=== PATIENT | female | born 1950 | race Caucasian/White ===

== ENCOUNTER 2017-03-08 09:29 | Emergency (ER) | payer OTHER ==
[~2017-03-08] VITALS: Ht 162.6 cm; Wt 81.6 kg
[2017-03-08] MEDS ORDERED: PAROXETINE HCL20 MG PO (10:03)
[2017-03-08] MEDS ORDERED: CELECOXIB200 MG PO (10:04)
[2017-03-08] MEDS ORDERED: PRAVASTATIN SOD40 MG PO (10:04)
[2017-03-08] MEDS ORDERED: ATENOLOL25 MG PO (10:04)
[2017-03-08] MEDS ORDERED: LEVOTHYROXINE125 MCG PO (10:05)
[2017-03-08] MEDS ORDERED: METFORMIN HCL500 M1 PO (10:05)
[2017-03-08] MEDS ORDERED: GAS-X125 M1 PO (10:05)
[2017-03-08] MEDS ORDERED: NORCO 5-325 TA1 EACH PO (12:34)
[2017-03-08] MEDS ORDERED: FLAGYL500 MG PO (12:34)
[2017-03-08] MEDS ORDERED: CIPRO500 MG PO (12:34)
== END 2017-03-08 12:55 | disposition home or self-care (01) ==
LOC: ED 09:29
DX: K57.30 Diverticulosis of large intestine without perforation or abscess without bleeding (principal); I10 Essential (primary) hypertension; Z90.49 Acquired absence of other specified parts of digestive tract; Z90.710 Acquired absence of both cervix and uterus; Z88.5 Allergy status to narcotic agent; Z79.899 Other long term (current) drug therapy
CPT/HCPCS: 74177; 80053; 81001; 85025; 96361; 96374; 96375; 99284; J1170; J2405; J7030; Q9967

== ENCOUNTER 2019-09-11 06:18 | Emergency (ER) | payer MEDICARE, OTHER ==
[~2019-09-11] VITALS: Ht 162.6 cm; Wt 83.0 kg
[~2019-09-11 06:18] MED LIST: ATENOLOL25 MG PO; CELECOXIB200 MG PO; CIPRO500 MG PO; FLAGYL500 MG PO; GAS-X125 M1 PO; LEVOTHYROXINE125 MCG PO; METFORMIN HCL500 M1 PO; NORCO 5-325 TA1 EACH PO; PAROXETINE HCL20 MG PO; PRAVASTATIN SOD40 MG PO
[2019-09-11] MEDS ORDERED: AMOX TR-K CLV1 EAC1 PO (06:41)
[2019-09-11] MEDS ORDERED: ONDANSETRON HCL8 MG PO (06:41)
[2019-09-11] MEDS ORDERED: ATENOLOL50 MG PO (06:42)
[2019-09-11] MEDS ORDERED: ESOMEPRAZOLE MA40 MG PO (06:43)
[2019-09-11] MEDS ORDERED: DILAUDID2 MG PO (10:24)
[2019-09-11] MEDS ORDERED: ONDANSETRON ODT8 MG PO (10:24)
[2019-09-11] MEDS ORDERED: CIPRO500 MG PO (10:24)
[2019-09-11] MEDS ORDERED: FLAGYL500 MG PO (10:24)
== END 2019-09-11 10:58 | disposition home or self-care (01) ==
LOC: ED 06:18
DX: K57.32 Diverticulitis of large intestine without perforation or abscess without bleeding (principal); I10 Essential (primary) hypertension; Z88.5 Allergy status to narcotic agent; Z79.899 Other long term (current) drug therapy
CPT/HCPCS: 74177; 80053; 81001; 83690; 85025; 96361; 96365; 96368; 96375; 99284-25; J0744; J1170; J2405; J7030; Q9967

== ENCOUNTER 2020-01-11 11:08 | Emergency (ER) | payer MEDICARE, OTHER ==
[~2020-01-11] VITALS: Ht 162.6 cm; Wt 83.0 kg
[~2020-01-11 11:08] MED LIST changes: +AMOX TR-K CLV1 EAC1 PO; +ATENOLOL50 MG PO; +DILAUDID2 MG PO; +ESOMEPRAZOLE MA40 MG PO; +ONDANSETRON HCL8 MG PO; +ONDANSETRON ODT8 MG PO
[2020-01-11] MEDS ORDERED: RALOXIFENE HCL60 MG PO (11:15)
[2020-01-11] MEDS ORDERED: MECLIZINE HCL25 MG PO (11:16)
[2020-01-11] MEDS ORDERED: PREDNISONE10 MG PO (13:43)
[2020-01-11] MEDS ORDERED: ATIVAN1 MG PO (13:43)
[2020-01-11] MEDS ORDERED: TRANSDERM-SCOP1 EACH TD (13:43)
[2020-01-11] MEDS ORDERED: ONDANSETRON ODT8 MG PO (13:43)
== END 2020-01-11 14:13 | disposition home or self-care (01) ==
LOC: ED 11:08
DX: R42 Dizziness and giddiness (principal); I10 Essential (primary) hypertension; Z88.5 Allergy status to narcotic agent; Z79.899 Other long term (current) drug therapy
CPT/HCPCS: 36415; 80053; 85025; 96361; 96374; 96375; 99284-25; J2060; J2405; J7030; J7512

== ENCOUNTER 2020-10-22 11:57 | Observation (INO) | payer MEDICARE, OTHER ==
[~2020-10-22] VITALS: Ht 162.6 cm; Wt 81.0 kg
[~2020-10-22 11:57] MED LIST changes: -ATENOLOL25 MG PO; +ATIVAN1 MG PO; +MECLIZINE HCL25 MG PO; +PREDNISONE10 MG PO; +RALOXIFENE HCL60 MG PO; +TENORMIN50 MG PO; +TRANSDERM-SCOP1 EACH TD
[2020-10-22] MEDS ORDERED: TRIAMTERENE-HC1 EAC1 PO (17:44)
--- NOTE | 2020-10-22 17:58 | NUR ---
PATIENT ARRIVES TO CCU AROUND 1700 FROM ER. PT ABLE TO STAND AND MOVE OVER TO BED BUT IS SLIGHTLY SHORT OF BREATH AND PAINFUL WITH EVEN THIS LITTLE ACTIVITY. PT ADMITTED WITH BILATERAL PEs. ASSESSMENT AND VITALS TAKEN. PT IS ON ROOM AIR. PT STATES PAIN IS 5/10 IN HER LEFT CHEST AND RADIATES TO HER BACK. PT DESCRIBES THIS SEVERE IN NATURE, BUT IMPROVED MUCH SINCE AT HOME. PT REPORTS SHE HAS BEEN DEALING WITH THIS PAIN FOR AROUND 3 DAYS. PT DENIES ANY P AST MEDICAL HISTORY OF CLOTTING DISORDERS, BUT DOES NOTE THAT HER DAUGHTER HAS CLOTTING ISSUES. PT GIVEN LOVENOX IN ER. IVF STARTED AT 75 ML/HR. PT TALKS WITH HER ON THE PHONE. CALL LIGHT IN REACH.
[2020-10-22] MEDS ORDERED: VITAMIN D325 MCG PO (18:10)
--- NOTE | 2020-10-22 18:11 | NUR ---
PATIENT GIVEN OXYCODONE AND TYLENOL FOR 9/10 PAIN IN LEFT SIDE CHEST. PT HELPED TO SIT UPRIGHT MORE. CONTINUE TO MONITOR.
--- NOTE | 2020-10-22 19:42 | NUR ---
REPORT RECEIVED FROM ADRIANA JOY. PT RESTING IN BED WITH EYES CLOSED, RESP EVEN AND UNLABORED HR 80'S.
--- NOTE | 2020-10-22 21:10 | NUR ---
PT AWAKENS AND CALLS TO USE BR. UP TO BR TO VOID, BACK TO BED. PT PAINFUL ON LEFT SIDE WITH MOVEMENT, STATES NO NEW PAIN AT THIS TIME AND PAIN SETTLES DOWN ONCE SHE GETS INTO BED BUT SHE DOES REQUEST PAIN MEDICATION WHEN IT IS TIME. ASSESSMENT DONE. PT ON ROOM AIR 95%, LUNGS CLEAR, DEEP BREATHING ENCOURAGED. IS BROUGHT INTO ROOM AND EDUCATION DONE. PT ALSO GIVEN FIRST DOSE OF ELIQUIS, MED EDUCATION DONE INCLUDING REASON FOR TAKING IT. NO QUESTIONS AT THIS TIME. PT WANTS TO TRY TO GET BACK TO SLEEP.
--- NOTE | 2020-10-22 21:57 | EKG ---
[facility] [address] [facility] [facility] [place], [place] [address] Signed Normal sinus rhythm Normal ECG No previous ECGs available Confirmed by NAI EPSTEIN MD ([id number]) on 10/22/2020 9:56:54 PM Electronically Signed By: NAI EPSTEIN MD 10/22/20 2157 PATIENT NAME: BRII BENJAMIN DEMETRIUS Electrocardiogram DATE OF : 52 PHYSICIAN: NAI EPSTEIN MD REPORT #: [id number] REPORT IS CONFIDENTIAL AND NOT TO BE RELEASED WITHOUT AUTHORIZATION
--- NOTE | 2020-10-22 23:00 | NUR ---
PT AWAKE IN BED, REQUESTS PAIN MEDICINE, OXYCODONE GIVEN 10MG. ASSESSMENT DONE.
--- NOTE | 2020-10-23 01:00 | NUR ---
PT RESTING WITH EYES CLOSED, RESP EVEN AND UNLABORED.
--- NOTE | 2020-10-23 04:30 | NUR ---
O2 SATS DIPPING DOWN TO 89 90% WHILE PT SLEEPING. O2/2L APPLIED AND SATS UP TO 98%.
--- NOTE | 2020-10-23 06:10 | NUR ---
PT CALLS FOR PAIN MEDICINE 5/10 IN LEFT CHEST AND BACK, WORSE WITH ACTIVITY. 10MG OXYCODONE GIVEN, PT UP TO BR TO VOID THEN BACK TO BED. 92-93% ON ROOM AIR, WILL REAPPLY OXYGEN AT 2L.
--- NOTE | 2020-10-23 08:00 | NUR ---
Spoke withpt and she states she lives out of town in a 1 story home with her spouse and her daughter. She states she is usually very acti ve and does not use any DME. They do not have any financial issues. States she will have assist from her spouse and her daughter. Plans on dc to home when cleared by hospitalist.
--- NOTE | 2020-10-23 08:15 | NUR ---
Spoke with Dario who I am very familar with. He cont. to live at home with his mother, his sister is a state paid cg. He is bedbound. He is seen by [facility] for catheter care. He denies needs. Shows me and itchy area on his L hip, which is dried skin and possible old wound site. Denies needs to go home and wants to go home when cleared for dc.
--- NOTE | 2020-10-23 08:17 | NUR ---
DR. EPSTEIN IN TO SEE PATIENT. PATIENT RESTING. PT RATES PAIN 3/10 AT THIS TIME. PT'S BREAKFAST BROUGHT INTO HER. PT STATES SHE IS SLIGHTLY NAUESOUS AT THIS TIME. OXYGEN TURNED DOWN TO 1 L AND SP02 WAS 98% BEFORE TURNED DOWN. ASSESSMENT COMPLETE.
--- NOTE | 2020-10-23 10:10 | NUR ---
PATIENT RESTING. OXYGEN TURNED OFF AND SP02 WAS 98% ON 1 L. PT STATES, "i'M JUST TRYING TO WAKE UP A LITTLE MORE AND LET THOSE PAIN PILLS WEAR OFF." PATIENT ABLE TO EAT HER BREAKFAST, AND HER NAUSEA EVENTUALLY SUBSIDED. LAST BP 143/74. CONTINUE TO MONITOR.
--- NOTE | 2020-10-23 11:36 | NUR ---
PATIENT UP TO CHAIR AND VISITING WITH HER DAUGHTER. PATIENT WILL TRANSFER TO MEDICAL FLOOR WHEN ROOM AVAILABLE. PT HAS REMAINED OFF OXYGEN NOW FOR A OCUPLE HOURS, AND SP02 IS 95% CURRENTLY. DR. EPSTEIN CALLED FOR ADDITIONAL ACID REFLUX MEDICATION. PT STATES SHE HAS PRESCRIPTION STRENGTH NEXIUM AT HOME AND HAS HORRIBLE ACID RELUX ISSUES. NEW ORDER RECEIVED FOR PROTONIX DAILY AND FIRST DOSE GIVEN. NOON ASSESSMENT COMPLETE. CONTINUE TO MONITOR.
--- NOTE | 2020-10-23 14:11 | NUR ---
ARRIVES FROM CCU. ASSESSMENT COMPLETED. STATES SHE IS FEELING NAUSEATED. PRN MEDICATION GIVEN. DENIES OTHER NEEDS AT THIS TIME.
--- NOTE | 2020-10-23 14:52 | NUR ---
PATIENT RESTING IN BED, EYES CLOSED. WOKE TO VOICE. VITALS AND I&OS CHARTED. FRESH WATER GIVEN
--- NOTE | 2020-10-23 15:41 | NUR ---
Sitting up in bed. Watching TV. States her nausea and reflux are improved. Denies other needs at this time.
--- NOTE | 2020-10-23 17:25 | NUR ---
RX for 1st month Robert faxed to [facility]. It is ready for pickup and the copay is [phone]. Patient is aware of the cost and is agreeable to picking it upon discharge
--- NOTE | 2020-10-23 18:16 | NUR ---
Sitting up in bed, watching TV. Heartrate remains in 60's per telemetry. Respirations remain even and unlabored. Denies needs. Call light in reach. Bed rails up X2.
--- NOTE | 2020-10-23 18:44 | NUR ---
ADMITTED TO MED-SURG FROM CCU THIS AFTERNOON. REMAINS ON ROOM AIR. IV FLUIDS INFUSING. DENIES PAIN THIS AFTERNOON. WAS NAUSEOUS, IMPROVED WITH PRN ZOFRAN.
--- NOTE | 2020-10-23 19:10 | NUR ---
RECEIVED REPORT FROM TELMA JOY. pt RESTING IN BED. UP TO VOID AND DO PM CARES. STEADY ON FEET. VISITOR AT BEDSIDE. WHITEBOARD UPDATED. CALL LIGHT WITHIN REACH.
--- NOTE | 2020-10-23 20:52 | NUR ---
CALL LIGHT ANSWERED. pt COMPLAINS OF 1/10 CAZARES PAIN. PRN TYLENOL ADMINISTERED. pt STATES "I HAVEN'T HAD COFFEE FOR THREE DAYS OR TAKEN ANYTHING TODAY". COFFEE OFFERED, pt STATES "MY STOMACH CAN'T HANDLE THAT RIGHT NOW". VSS. pt SNACKING ON APPLESAUCE, CRACKERS. SCHEDULED MEDICATION ADMINISTERED, EDUCATION PROVIDED. ICE WATER REFRESHED. IVF INFUSING WNL. NO ADDITIONAL REQUESTS AT THIS TIME.
--- NOTE | 2020-10-23 21:14 | NUR ---
IN TO DO ASSESSMENT. pt RESTING IN BED, AWAKE. REPORTED THAT SHE HAD JUST GOTTEN PAIN MEDS FOR HEADACHE. ASSESSMENT DONE. DENIED CHEST TIGHTNESS OR SOB AT THIS TIME. pt REPORTED THAT HER BREATHING WAS BETTER AND SHE FELT SHE COULD BREATH DEEPER THAN BEFORE. LUNG SOUNDS CLEAR. NO REQUESTS AT THIS TIME. O2 SAT 95%, HR 61 ON TELE 9. CALL LIGHT WITHIN REACH.
--- NOTE | 2020-10-23 23:48 | NUR ---
ROUNDED ON pt. RESTING IN BED WITH EYES CLOSED, HR 50'S, O2 SAT 94%. CALL LIGHT WITHIN REACH.
--- NOTE | 2020-10-24 02:03 | NUR ---
ROUNDED ON pt. RESTING IN BED WITH EYES CLOSED, RESPIRATIONS REGULAR AND UNLABORED. HR 50'S O2 SAT 97% ON ROOM AIR. CALL LIGHT WITHIN REACH.
--- NOTE | 2020-10-24 03:00 | NUR ---
NOTED DESAT TO HIGH 80'S. pt RESTING IN BED WITH EYES CLOSED, RESPIRATIONS REGULAR AND UNLABORED. SATS RETURNED TO MID 90'S QUICKLY WITHOUT INTERVENTION.
--- NOTE | 2020-10-24 04:13 | NUR ---
CALL LIGHT ON. IV PUMP BEEPING. NEW BAG HUNG. pt UP TO VOID, SBA. pt BACK TO BED. ASSESSMENT DONE. NO CHANGES IN ASSESSMENT. pt DENIES PAIN EVEN WITH COUGH. pt REPORTED "I FEEL A LOT BETTER" NO FURTHER REQUESTS AT THIS TIME. CALL LIGHT WITHIN REACH.
--- NOTE | 2020-10-24 06:34 | NUR ---
IN TO DO VITALS AND MEDS. pt AWAKE IN BED. DENIES PAIN. REPORTED SLEEPING WELL DURING THE NIGHT. MEDICATION GIVEN, VITALS DONE. pt SBA UP TO VOID AND BACK TO BED. FRESH WATER PROVIDED. CALL LIGHT WITHIN REACH.
--- NOTE | 2020-10-24 07:00 | NUR ---
Report from Yovani Olivarez RN.
--- NOTE | 2020-10-24 07:37 | NUR ---
SITTING UP IN BED, WATCHING TV. STATES SHE IS FEELING VERY WELL THIS AM AND WOULD LIKE TO GO HOME. RESPIRATIONS REMAIN EVEN AND UNLABORED ON ROOM AIR. IV FLUIDS INFUSING. TELEMETRY SHOW HEART RATE IN HIGH 50'S AND 60'S. ASSESSMENT COMPLETED. DENIES OTHER NEEDS. CALL LIGHT IN REACH, BED RAILS UP X2.
[2020-10-24] MEDS ORDERED: ELIQUIS5 MG PO (11:06)
--- NOTE | 2020-10-24 11:15 | NUR ---
case checker DC'd, continuous pulse ox DC'd, IV DC'd and catheter intact.
--- NOTE | 2020-10-24 11:46 | NUR ---
DC instructions given to patient. Verbalizes understanding.
--- NOTE | 2020-10-24 13:59 | NUR ---
PT WAS TALKING ON PHONE-REQUESTED I COME BACK AGAIN.
== END 2020-10-24 12:15 | disposition home or self-care (01) ==
LOC: ED 11:57 → MS 11:59 → CCU 11:59 → MS 10-23 12:58
PROVIDERS: ADMIT Internal Medicine; ATTEND Internal Medicine
DX: I26.99 Other pulmonary embolism without acute cor pulmonale (principal); I10 Essential (primary) hypertension; E89.0 Postprocedural hypothyroidism; K21.9 Gastro-esophageal reflux disease without esophagitis; K44.9 Diaphragmatic hernia without obstruction or gangrene; Z88.5 Allergy status to narcotic agent; Z20.822 Contact with and (suspected) exposure to COVID-19
CPT/HCPCS: 36415; 71045; 71260; 80048; 80053; 84484; 85025; 85379; 93005; 93010; 96376; 99285-25; C9803; G0378; J1650; J2405; J3010; J7121; Q9967; U0003

== ENCOUNTER 2021-04-08 09:20 | Emergency (ER) | payer MEDICARE, OTHER ==
[~2021-04-08] VITALS: Ht 160 cm; Wt 80.7 kg
[~2021-04-08 09:20] MED LIST changes: +ELIQUIS5 MG PO; +TRIAMTERENE-HC1 EAC1 PO; +VITAMIN D325 MCG PO
[2021-04-08] MEDS ORDERED: TRIAMTERENE-HC1 EAC1 PO (09:37)
[2021-04-08] MEDS ORDERED: AUGMENTIN 875-1 EACH PO (11:21)
[2021-04-08] MEDS ORDERED: HYDROCODON-ACE1 EA10 PO (11:21)
[2021-04-08] MEDS ORDERED: ONDANSETRON ODT4 MG PO (11:21)
== END 2021-04-08 12:04 | disposition home or self-care (01) ==
LOC: ED 09:20
DX: K57.32 Diverticulitis of large intestine without perforation or abscess without bleeding (principal); I10 Essential (primary) hypertension; Z88.5 Allergy status to narcotic agent; Z79.899 Other long term (current) drug therapy
CPT/HCPCS: 74177; 80053; 85025; 96375; 99284-25; J1170; J2405; Q9967

== ENCOUNTER 2022-10-22 07:03 | Emergency (ER) | payer MEDICARE, OTHER ==
[~2022-10-22] VITALS: Ht 160 cm; Wt 80.7 kg
[~2022-10-22 07:03] MED LIST changes: +AUGMENTIN 875-1 EACH PO; +HYDROCODON-ACE1 EA10 PO; +ONDANSETRON ODT4 MG PO
[2022-10-22] MEDS ORDERED: EZETIMIBE10 MG PO (07:12)
[2022-10-22] MEDS ORDERED: AMOX TR-K CLV1 EAC1 PO (09:37)
== END 2022-10-22 09:56 | disposition home or self-care (01) ==
LOC: ED 07:03
DX: K57.32 Diverticulitis of large intestine without perforation or abscess without bleeding (principal); K29.70 Gastritis, unspecified, without bleeding; E03.9 Hypothyroidism, unspecified; E78.00 Pure hypercholesterolemia, unspecified; K21.9 Gastro-esophageal reflux disease without esophagitis; Z88.5 Allergy status to narcotic agent; Z79.899 Other long term (current) drug therapy
CPT/HCPCS: 36415; 74177; 80053; 81001; 83690; 85025; 96375; 99284-25; J1885; J2405; J7121; Q9967